=== PATIENT | female | born 1990 | race Caucasian/White ===

== ENCOUNTER 2021-04-26 05:45 | Inpatient (IN) | payer BC ==
[~2021-04-26] VITALS: Ht 165.1 cm; Wt 98.4 kg
[~2021-04-26 05:45] MED LIST: PRENATAL VITAM1 EAC6 PO
[2021-04-26 06:30] LABS: HEMOGLOBIN 14.8 gm/dl (12.3-15.3); RED BLOOD COUNT 4.33 M/UL (4.00-5.10); WHITE BLOOD COUNT 7.2 K/UL (4.5-11.0)
[2021-04-26] MEDS ORDERED: PRENATAL TABLE1 EAC1 PO (06:31)
[2021-04-27 07:28] LABS: HEMOGLOBIN 12.4 gm/dl (12.3-15.3)
[2021-04-27] MEDS ORDERED: FEROSUL325 MG PO (13:00)
[2021-04-27] MEDS ORDERED: IBUPROFEN600 MG PO (13:00)
[2021-04-27] MEDS ORDERED: DOCUSATE SODIU250 MG PO (13:00)
== END 2021-04-27 16:26 | disposition home or self-care (01) | DRG 807 ==
LOC: OB 05:45
PROVIDERS: ADMIT Obstetrics & Gynecology
PROC: 10E0XZZ Delivery of Products of Conception, External Approach (ICD-10-PCS; principal; 2021-04-26)
PROC: 0HQ9XZZ Repair Perineum Skin, External Approach (ICD-10-PCS; 2021-04-26)
PROC: 4A1HXCZ Monitoring of Products of Conception, Cardiac Rate, External Approach (ICD-10-PCS; 2021-04-26)
PROC: 3E0234Z Introduction of Serum, Toxoid and Vaccine into Muscle, Percutaneous Approach (ICD-10-PCS; 2021-04-26)
DX: O99.824 Streptococcus B carrier state complicating childbirth (principal); Z37.0 Single live birth; O70.0 First degree perineal laceration during delivery; Z3A.39 39 weeks gestation of pregnancy; Z20.822 Contact with and (suspected) exposure to COVID-19; Z23 Encounter for immunization
CPT/HCPCS: 36415; 51702; 81001; 82800; 85014; 85018; 85025; 90715; G0378; J2590; J7120; U0002